=== PATIENT | female | born 1970 | race Asian ===

== ENCOUNTER 2016-12-04 11:31 | Day surgery (SDC) | payer OTHER ==
[~2016-12-04] VITALS: Ht 162.6 cm; Wt 60.0 kg
[~2016-12-04 11:31] MED LIST: 0.9% Sodium Chloride 1,000 ML IV PRN; Sodium Chloride LOK Flush 10 mL Syringe IV PRN; fentaNYL-PF 50 mCg/mL 2 mL Inj IVPUSH PRN
[2016-12-04 12:11] VITALS: BP 106/65; PULSE 72; RESP 14; O2SAT 99
[2016-12-04 13:49] VITALS: BP 92/62; PULSE 73; RESP 14; O2SAT 99
[2016-12-04 13:58] VITALS: BP 88/56; PULSE 85; RESP 14; O2SAT 100
[2016-12-04 14:08] VITALS: BP 100/73; PULSE 85; RESP 16; O2SAT 100
--- NOTE | 2016-12-04 22:23 | ENDO ---
[address] [address] ENDOSCOPY PROCEDURE PATIENT: BHARAT GARY : 1970 MR#: [id number] ADMIT: 12/04/2016 JOB ID: [id number] DATE OF PROCEDURE: 12/04/2016 PRIMARY PROVIDER: None listed. PROCEDURE: Colonoscopy. INDICATIONS: A 46-year-old female with a family history of colon cancer reporting for screening. EQUIPMENT: [id number]. SEDATION: 1. Versed 5 mg. 2. Fentanyl 100 mcg. COMPLICATIONS: None identified. BOWEL PREPARATION: Excellent. PROCEDURE INFORMATION: After the risks and benefits were explained, written and verbal informed consent was obtained. The patient was brought into the endoscopy suite and placed into the left lateral decubitus position. Sedation was achieved using the above-stated medications with the addition of oxygen via nasal cannula. A digital rectal examination was accomplished. Mild internal hemorrhoids were appreciated. The scope was introduced into the rectum and advanced under direct visualization to the level of the cecum, as identified by the appendiceal orifice and ileocecal valve. The scope was slowly withdrawn to carefully examine the mucosa for any defects or lesions. Retroflexed views were avoided in the rectum. Multiple direct views were made through the dentate line for exclusion of pathology. The colon was decompressed. The scope was removed from the patient who tolerated the tolerated the procedure well. FINDINGS: No significant polyps, mass lesions, or inflammatory features identified throughout. ENDOSCOPIC DIAGNOSIS: Visually normal colonoscopy to cecum. RECOMMENDATIONS: Repeat colonoscopy in five years' time considering family history.
== END 2016-12-04 23:59 | disposition home or self-care (01) ==
LOC: END 11:31
PROVIDERS: ATTEND Internal Medicine Gastroenterology
DX: Z12.11 Encounter for screening for malignant neoplasm of colon (principal); Z80.0 Family history of malignant neoplasm of digestive organs
CPT/HCPCS: G0105; J2250; J7030